=== PATIENT | male | born 1975 | race Caucasian/White ===

== ENCOUNTER 2019-09-23 19:28 | Inpatient (IN) | payer OTHER ==
[~2019-09-23] VITALS: Ht 167.6 cm; Wt 66.2 kg
[2019-09-23] MEDS ORDERED: GLIPIZIDE XL5 MG (19:45)
[2019-09-23] MEDS ORDERED: NEURONTIN800 MG (19:45)
== END 2019-09-28 13:22 | disposition left against medical advice (07) | DRG 603 ==
LOC: ER 19:28 → SURH 09-24 15:04
PROVIDERS: ADMIT Internal Medicine
PROC: B24BZZZ Ultrasonography of Heart with Aorta (ICD-10-PCS; 2019-09-24)
PROC: BP4NZZZ Ultrasonography of Right Hand (ICD-10-PCS; 2019-09-24)
PROC: BP3 Imaging, Non-Axial Upper Bones, Magnetic Resonance Imaging (MRI) (ICD-10-PCS; principal; 2019-09-25)
DX: L03.113 Cellulitis of right upper limb (principal); F19.20 Other psychoactive substance dependence, uncomplicated; F14.29 Cocaine dependence with unspecified cocaine-induced disorder; E11.9 Type 2 diabetes mellitus without complications; Z79.4 Long term (current) use of insulin
CPT/HCPCS: 73218

== ENCOUNTER 2019-11-17 20:57 | Emergency (ER) | payer OTHER ==
[~2019-11-17] VITALS: Ht 162.6 cm; Wt 59.0 kg
[~2019-11-17 20:57] MED LIST: GLIPIZIDE XL5 MG; NEURONTIN800 MG
== END 2019-11-17 22:38 | disposition home or self-care (01) ==
LOC: ER 20:57
DX: S30.0XXA Contusion of lower back and pelvis, initial encounter (principal); M54.2 Cervicalgia; W18.39XA Other fall on same level, initial encounter; Y93.89 Activity, other specified; Y92.89 Other specified places as the place of occurrence of the external cause; Y99.8 Other external cause status

== ENCOUNTER 2019-11-28 03:47 | Emergency (ER) | payer OTHER ==
[~2019-11-28] VITALS: Ht 167.6 cm; Wt 54.4 kg
[2019-11-28] MEDS ORDERED: GLIPIZIDE XL5 MG PO (03:55)
== END 2019-11-28 05:43 | disposition home or self-care (01) ==
LOC: ER 03:47
DX: Z48.02 Encounter for removal of sutures (principal)

== ENCOUNTER 2020-10-13 21:43 | Emergency (ER) | payer OTHER ==
[~2020-10-13] VITALS: Ht 167.6 cm; Wt 69.9 kg
[~2020-10-13 21:43] MED LIST changes: +GLIPIZIDE XL5 MG PO
[2020-10-13] MEDS ORDERED: DESITIN57 G1 TOP (23:26)
[2020-10-13] MEDS ORDERED: ACETAMINOPHEN500 M2 PO (23:26)
[2020-10-13] MEDS ORDERED: CLOTRIMAZOLE 321 GM TOP (23:26)
== END 2020-10-13 23:58 | disposition home or self-care (01) ==
LOC: ER 21:43
DX: B37.89 Other sites of candidiasis (principal)